=== PATIENT | male | born 1950 | race American Indian/Alaskan Native ===

== ENCOUNTER 2020-08-01 12:31 | Inpatient (IN) | payer OTHER ==
[2020-08-01] MEDS ORDERED: SODIUM CHLORIDE 0.9% 1000 ML 1,000 ML IV ONE ×3 (13:25→19:55)
--- NOTE | 2020-08-01 13:28 | Event Note ---
ED Screening Note Date of service: 08/01/20 Time: 13:27 ED Screening Note: 70-year-old male sent to the emergency room from [facility] primary [facility] for elevated glucose. States that the glucose meter only states high. Patient does have a history of diabetes. Complains of blurred vision, increased thirst and increased urinary frequency that started 1 week ago. This initial assessment/diagnostic orders/clinical plan/treatment(s) is/are subject to change based on patients health status, clinical progression and re- assessment by fellow clinical providers in the ED. Further treatment and workup at subsequent clinical providers discretion. Patient/guardian urged not to elope from the ED as their condition may be serious if not clinically assessed and managed. Initial orders include: 70-year-old -Beninese male with is referred to the emergency room by [facility] primary [facility]
[2020-08-01 14:37] LABS: Albumin 4.7 g/dL (3.9-5); Calcium 10.4 mg/dL (8.4-10.2)
[2020-08-01 14:42] LABS: Bilirubin,Urine NEG (Negative); Blood,Urine NEG (Negative); Color,Urine Straw (Yellow); Protein,Urine <15 mg/dL mg/dL (Negative); Urobilinogen,Urine < 2.0 mg/dL (<2.0)
[2020-08-01 15:19] LABS: Calcium 10.6 mg/dL (8.4-10.2)
[2020-08-01] MEDS ORDERED: INSULIN REGULAR, HUMAN 100 UNITS in SODIUM CHLORIDE 0.9% 99 ML IV SCH (16:00)
--- NOTE | 2020-08-01 16:08 | Emergency Department Report ---
HPI - General Chief Complaint: Hyperglycemia Time Seen by Provider: 08/01/20 15:51 - HPI HPI: This is a 70-year-old male who presents to the emergency department, sent in by his PCP Dr. Badillo, with a complaint of uncontrolled diabetes. The patient is [id number] on Metformin but admits to noncompliance with his medication over the past 6 weeks. Patient complains of fatigue, dry mouth, increased urination and just generally feels unwell. Patient also has some questionable history of hypertension but is not on any medication for it. He denies any history of MA, CVA, PE/DVT. He has not taken anything for symptoms prior to presentation. He denies any fever, nausea, vomiting, chest pain, shortness of breath, abdominal pain. No known aggravating or alleviating factors. He denies any tobacco or illicit drug use. ED Past Medical Hx - Past Medical History Hx Diabetes: Yes - Surgical History Past Surgical History?: No ED Review of Systems ROS: Stated complaint: HIGH GLUCOSE Other details as noted in HPI Comment: All other systems reviewed and negative Constitutional: other (Fatigue). denies: chills, fever Eyes: denies: eye pain, vision change ENT: denies: ear pain, throat pain Respiratory: denies: cough, shortness of breath Cardiovascular: denies: chest pain, palpitations Endocrine: increased thirst, increased urine Gastrointestinal: denies: abdominal pain, vomiting Genitourinary: frequency. denies: dysuria Musculoskeletal: denies: back pain, arthralgia Skin: denies: rash, lesions Neurological: denies: headache, numbness Physical Exam - Physical Exam Vital Signs: Vital Signs 08/01/20 13:08 Temperature 98.4 F Pulse Rate 101 H Respiratory 20 Rate Blood Pressure 163/93 [Right] O2 Sat by Pulse 99 Oximetry Physical Exam: GENERAL: The patient is well-developed well-nourished. HENT: Normocephalic. Atraumatic. Patient has moist mucous membranes. EYES: Extraocular motions are intact. NECK: Supple. Trachea is midline. CHEST/LUNGS: Clear to auscultation. There is no respiratory distress noted. HEART/CARDIOVASCULAR: Regular. There is no tachycardia. There is no murmur. ABDOMEN: Abdomen is soft, nontender. Patient has normal bowel sounds. SKIN: Skin is warm and dry. NEURO: The patient is awake, alert, and oriented. The patient is cooperative. The patient has no focal neurologic deficits. Normal speech. Cranial nerves II through XII grossly intact. MUSCULOSKELETAL: There is no tenderness or deformity. There is no limitation range of motion. ED Course Vital Signs 08/01/20 13:08 Temperature 98.4 F Pulse Rate 101 H Respiratory 20 Rate Blood Pressure 163/93 [Right] O2 Sat by Pulse 99 Oximetry - Reevaluation(s) Reevaluation #1: 08/01/20 16:08 Patient's labs were drawn just prior to my shift starting. The patient appears to be in diabetic ketoacidosis with venous acidosis, elevated anion gap of 35, and a serum blood sugar of about 600. He has 80 urine ketones. Patient will receive IV fluid resuscitation and will be started on insulin drip. The patient does have hyperkalemia with a potassium level of 6.8 but this should come down with the insulin drip. ED Medical Decision Making - Lab Data Result diagrams: 08/01/20 16:50 08/01/20 16:50 Lab Results 08/01/20 08/01/20 08/01/20 Range/Units 13:18 13:37 13:37 VBG pH (7.320-7.420) Sodium 132 L 129 L (137-145) mmol/L Potassium 5.9 H 6.8 H* (3.6-5.0) mmol/L Chloride 87.1 L 87.7 L (98-107) mmol/L Carbon Dioxide 16 L 13 L (22-30) mmol/L Anion Gap 35 35 mmol/L BUN 27 H 26 H (9-20) mg/dL Creatinine 1.5 H 1.5 H (0.8-1.3) mg/dL Estimated GFR 46 46 ml/min BUN/Creatinine Ratio 18 17 % Glucose 605 H* 594 H* (75-100) mg/dL POC Glucose 588 H (70-105) mg/dL Calcium 10.4 H 10.6 H (8.4-10.2) mg/dL Phosphorus 4.50 (2.5-4.5) mg/dL Magnesium 2.40 H (1.7-2.3) mg/dL Total Bilirubin 0.40 (0.1-1.2) mg/dL AST 19 (5-40) units/L ALT 20 (7-56) units/L Alkaline Phosphatase 76 (35-129) units/L Total Protein 7.5 (6.3-8.2) g/dL Albumin 4.7 (3.9-5) g/dL Albumin/Globulin Ratio 1.7 % 08/01/20 08/01/20 Range/Units 13:37 15:57 VBG pH 7.238 L (7.320-7.420) Sodium 132 L (137-145) mmol/L Potassium 4.8 D (3.6-5.0) mmol/L Chloride 88.5 L (98-107) mmol/L Carbon Dioxide 15 L (22-30) mmol/L Anion Gap 33 mmol/L BUN 26 H (9-20) mg/dL Creatinine 1.5 H (0.8-1.3) mg/dL Estimated GFR 56 ml/min BUN/Creatinine Ratio 17 % Glucose 557 H* (75-100) mg/dL POC Glucose (70-105) mg/dL Calcium 10.1 (8.4-10.2) mg/dL Phosphorus (2.5-4.5) mg/dL Magnesium (1.7-2.3) mg/dL Total Bilirubin (0.1-1.2) mg/dL AST (5-40) units/L ALT (7-56) units/L Alkaline Phosphatase (35-129) units/L Total Protein (6.3-8.2) g/dL Albumin (3.9-5) g/dL Albumin/Globulin Ratio % - Medical Decision Making This patient presents to the emergency department after he was sent in by his PCP for hyperglycemia. The patient has had some generalized weakness, polyuria and polydipsia. He appears to be in diabetic ketoacidosis with a venous acidosis of 7.23, serum blood sugar of about 600, and an elevated anion gap of 35. The patient has been given IV fluid resuscitation and started on insulin drip. The patient will be admitted to the ICU and has been accepted for admission by the hospitalist, Dr. Alcocer. Critical Care Time: Yes Critical care time in (mins) excluding proc time.: 35 Critical care attestation.: If time is entered above; I have spent that time in minutes in the direct care of this critically ill patient, excluding procedure time. Critical care time was spent on this patient in doing his initial evaluation, multiple reevaluations, ordering and interpretation of laboratory studies, IV fluid resuscitation and IV insulin drip for his DKA. Critical Care Time: 35 minutes ED Disposition Clinical Impression: DKA (diabetic ketoacidoses), High anion gap metabolic acidosis Disposition: OP ADMIT IP TO THIS HOSP Is pt being admited?: Yes Condition: Serious Time of Disposition: 18:38
[2020-08-01] MEDS ORDERED: ACETAMINOPHEN 325 MG TAB PO PRN (16:10)
--- NOTE | 2020-08-01 16:27 | History and Physical Report ---
History of Present Illness Chief complaint: My sugar is up History of present illness: 70 YO Male with DM, Medication/Dietary Noncompliance presents to ED for evaluation. Patient reports "my blood sugar is up". Patient acknowledges noncompliance with oral antihyperglycemic medication, as well as consistent carbohydrate diet. Patient states that he has experienced elevated blood glucose over the past 1 month. Patient knowledges polydipsia, polyuria and polyphagia as well as generalized weakness. Patient was seen and evaluated by his primary care physician today and was found to have an elevated blood glucose and was instructed to seek further care at [facility]. Patient transported via private vehicle to [facility] for further care and evaluation of the aforementioned symptoms. The patient was seen and evaluated in the emergency department. All lab and imaging studies reviewed. Patient found to have DKA complicated by volume depletion, acute kidney injury, and metabolic acidosis. Patient admitted to ICU and initiated on DKA protocol in the emergency department. Patient denies fever, chills, chest pain, palpitation, productive cough, skin rash, recent ill contacts, or known exposure to COVID-19. No prior admission for review. No medication listed at time of admission for reconci liation. Advanced care planning conducted in ED. Past History Past Medical History: diabetes, other (See HPI) Past Surgical History: No surgical history, Other (Reviewed) Social history: single. denies: smoking, alcohol abuse, prescription drug abuse Family history: diabetes, hypertension Medications and Allergies Allergies Allergy/AdvReac Type Severity Reaction Status Date / Time No Known Allergies Allergy Unverified 08/01/20 13:05 Active Meds: Active Medications Insulin Human Regular 100 (units/ Sodium Chloride) 100 mls @ 1 mls/hr IV TITR RYLEE; Protocol Review of Systems Constitutional: no weight loss, no weight gain, no fever, no chills Ears, nose, mouth and throat: no ear pain, no ear discharge, no decreased hearing, no sinus pressure Cardiovascular: no chest pain, no orthopnea, no palpitations, no edema, no syncope, no lightheadedness Respiratory: no cough, no cough with sputum, no excessive sputum, no hemoptysis, no shortness of breath, no dyspnea on exertion Gastrointestinal: no abdominal pain, no nausea, no vomiting, no constipation, no hematemesis, no coffee ground emesis Genitourinary Male: no hematuria, no flank pain, no discharge, no urinary frequency, no urinary hesitancy, no nocturia Rectal: no pain, no incontinence, no bleeding Musculoskeletal: no neck stiffness, no neck pain, no shooting arm pain, no arm numbness/tingling, no low back pain, no shooting leg pain Integumentary: no rash, no sores, no wounds, no jaundice Neurological: no transient paralysis, no paralysis, no parathesias, no numbness, no seizures, no syncope, no ataxia Psychiatric: no anxiety, no memory loss, no hypersomnia, no change in appetite, no suicidal ideation Endocrine: polyphagia, polydipsia, polyuria, nocturia, high blood sugars, no cold intolerance, no heat intolerance, no proptosis, no deepening of the voice, no thyroid mass Hematologic/Lymphatic: no easy bruising, no easy bleeding, no lymphadenopathy Allergic/Immunologic: no urticaria, no persistent infections, no anaphylaxis, no angioedema Exam - Constitutional Vitals: Temp Pulse Resp BP Pulse Ox 98.4 F 101 H 20 163/93 99 08/01/20 13:08 08/01/20 13:08 08/01/20 13:08 08/01/20 13:08 08/01/20 13:08 General appearance: Present: mild distress - EENT Eyes: Present: PERRL ENT: hearing intact, clear oral mucosa, other (Oral mucosa dry) - Neck Neck: Present: supple, normal ROM - Respiratory Respiratory effort: normal Respiratory: bilateral: CTA - Cardiovascular Heart Sounds: Present: S1 & S2. Absent: rub, click - Extremities Extremities: pulses symmetrical, No edema Peripheral Pulses: within normal limits - Abdominal General gastrointestinal: Present: soft, non-tender, non-distended, normal bowel sounds Male genitourinary: Present: normal - Integumentary Integumentary: Present: clear, warm, dry - Musculoskeletal Musculoskeletal: gait normal, strength equal bilaterally - Psychiatric Psychiatric: appropriate mood/affect, intact judgment & insight - Neurologic Neurologic: CNII-XII intact, moves all extremities Results - Labs CBC & Chem 7: 08/01/20 15:57 Labs: Abnormal lab results 08/01/20 08/01/20 08/01/20 Range/Units 13:37 13:37 13:37 VBG pH 7.238 L (7.320-7.420) Sodium 132 L 129 L (137-145) mmol/L Potassium 5.9 H 6.8 H* (3.6-5.0) mmol/L Chloride 87.1 L 87.7 L (98-107) mmol/L Carbon Dioxide 16 L 13 L (22-30) mmol/L BUN 27 H 26 H (9-20) mg/dL Creatinine 1.5 H 1.5 H (0.8-1.3) mg/dL Glucose 605 H* 594 H* (75-100) mg/dL Calcium 10.4 H 10.6 H (8.4-10.2) mg/dL Magnesium 2.40 H (1.7-2.3) mg/dL Assessment and Plan - Patient Problems (1) DKA (diabetic ketoacidoses) Current Visit: Yes Status: Acute Plan to address problem: DKA protocol: IV fluid resuscitation therapy, insulin drip, serial BMP to monitor anion gap, potassium repletion as per protocol, supportive care The high probability of a clinically significant, sudden or life threatening deterioration of the [endocrine, renal,] system(s) required my full and direct attention, intervention and personal management. The aggregate critical care time was [60] minutes. This time is in addition to time spent performing reported procedures but includes the following: [x] Data Review and interpretation [x] Patient assessment and monitoring of vital signs [x] Documentation [x] Medication orders and management (2) Metabolic acidosis Current Visit: Yes Status: Acute Plan to address problem: IV fluid resuscitation therapy, treat DKA, IV bicarbonate therapy, BMP, repeat BMP in a.m. (3) Acute kidney injury (GRISELDA) with acute tubular necrosis (ATN) Current Visit: Yes Status: Acute Plan to address problem: IV fluid resuscitation therapy, BMP, monitor urine output every shift, repeat BMP in a.m. to monitor serum creatinine as well as GFR. (4) DVT prophylaxis Current Visit: Yes Status: Acute Plan to address problem: SCD to bilateral lower extremities while in bed, patient is ambulatory (5) Advance care planning Current Visit: Yes Status: Acute Plan to address problem: Disease education conducted, patient is full code, care plan discussed, prognosis discussed, diagnosis discussed, patient knowledges understanding and agree with care plan, +30 minutes.
[2020-08-01 16:37] LABS: Calcium 10.1 mg/dL (8.4-10.2)
[2020-08-01] MEDS ORDERED: SODIUM CHLORIDE 0.9% 1000 ML 2,000 ML ONE (17:03)
[2020-08-01 17:44] LABS: BUN/Creatinine Ratio 19; Blood Urea Nitrogen 27 mg/dL (9-20); Calcium 10.1 mg/dL (8.4-10.2); Hemolysis Index 48
[2020-08-01 17:52] LABS: Hematocrit 48.4 % (35.5-45.6); Hemoglobin 15.6 gm/dl (11.8-15.2); Mean Corpuscular HGB Conc 32 % (32-34); Mean Corpuscular Volume 96 fl (84-94); Platelet Count 196 K/mm3 (140-440); Red Blood Count 5.02 M/mm3 (3.65-5.03); Red Cell Distribution Width 14.2 % (13.2-15.2)
[2020-08-01 20:03] LABS: BUN/Creatinine Ratio 19; Blood Urea Nitrogen 25 mg/dL (9-20); Calcium 9.4 mg/dL (8.4-10.2); Hemolysis Index 18
[2020-08-01] MEDS: FAMOTIDINE 20 MG TAB PO SCH (22:00)
[2020-08-01] MEDS ORDERED: D5W/0.45% NACL 1,000 ML IV SCH (22:00)
[2020-08-01 23:52] LABS: BUN/Creatinine Ratio 16; Blood Urea Nitrogen 22 mg/dL (9-20); Calcium 9.2 mg/dL (8.4-10.2); Hemolysis Index 9
[2020-08-02] MEDS ORDERED: D5W/0.45% NACL/KCL 20 MEQ 20 MEQ/1,000 ML BAG IV SCH (01:00)
[2020-08-02 06:20] LABS: BUN/Creatinine Ratio 16; Blood Urea Nitrogen 19 mg/dL (9-20); Calcium 8.9 mg/dL (8.4-10.2); Hemolysis Index 8
[2020-08-02] MEDS ORDERED: SODIUM CHLORIDE 0.9% 1000 ML 1,000 ML IV ONE (06:44)
[2020-08-02] MEDS ORDERED: INSULIN REGULAR, HUMAN 100 UNITS/1 ML SUB-Q ONE (07:44)
[2020-08-02] MEDS ORDERED: DEXTROSE 50% IN WATER (25GM) 50 ML SYRINGE IV PRN (08:03)
[2020-08-02] MEDS ORDERED: INSULIN NPH/REGULAR 70/30 INJ SUB-Q SCH ×2 (08:30→17:00)
--- NOTE | 2020-08-02 08:33 | Consultation ---
History of Present Illness - Reason for Consult Consult date: 08/02/20 DKA Requesting physician: CELINA MOULTON - History of Present Illness 70 y/o male with known diabetes who recently lost his job, admitted with DKA. Unfortunately patient was not able to obtain his medication since losing his job. He is normally compliant with therapy per report. He was started on insulin drip. Anion Gap is now closed. Patient feels better. Past History Past Medical History: diabetes, other (See HPI) Past Surgical History: No surgical history, Other (Reviewed) Social history: single. denies: smoking, alcohol abuse, prescription drug abuse Family history: diabetes, hypertension Medications and Allergies Allergies Allergy/AdvReac Type Severity Reaction Status Date / Time No Known Allergies Allergy Unverified 08/01/20 13:05 Active Meds: Active Medications Acetaminophen (Acetaminophen 325 Mg Tab) 650 mg PO Q6H PRN PRN Reason: Pain MILD(1-3)/Fever >100.5/SAWYER Dextrose (Dextrose 50% In Water (25gm) 50 Ml Syringe) 50 ml IV Q30MIN PRN; Protocol PRN Reason: Hypoglycemia Famotidine (Famotidine 20 Mg Tab) 20 mg PO BID RYLEE Last Admin: 08/01/20 22:00 Dose: Not Given Documented by: Insulin Human Regular 100 (units/ Sodium Chloride) 100 mls @ 1 mls/hr IV TITR RYLEE; Protocol Stop: 08/02/20 12:00 Last Titration: 08/02/20 08:00 Dose: 0 units/hr, 0 mls/hr Documented by: Sodium Chloride (Nacl 0.9% 1000 Ml) 1,000 mls @ 75 mls/hr IV BOLUS ONE Stop: 08/02/20 20:03 Last Admin: 08/02/20 07:43 Dose: 75 mls/hr Documented by: Insulin Human Isoph/Insulin Regular (Insulin Nph/Regular 70/30 Inj) 20 unit SUB-Q QDDIAB RYLEE Last Admin: 08/02/20 08:21 Dose: 20 unit Documented by: Insulin Human Isoph/Insulin Regular (Insulin Nph/Regular 70/30 Inj) 6 unit SUB- Q QPMDIAB RYLEE Insulin Human Lispro (Insulin Lispro 100 Unit/Ml) 0 unit SUB-Q ACHS RYLEE; Protocol Sodium Chloride (Sodium Chloride 0.9% 10 Ml Flush Syringe) 10 ml IV BID RYLEE Last Admin: 08/01/20 22:00 Dose: 10 ml Documented by: Sodium Chloride (Sodium Chloride 0.9% 10 Ml Flush Syringe) 10 ml IV PRN PRN PRN Reason: LINE FLUSH Review of Systems All systems: negative Exam - Constitutional Vitals: Temp Pulse Resp BP Pulse Ox 98.5 F 76 15 98/55 100 08/02/20 07:22 08/02/20 04:31 08/02/20 04:31 08/02/20 04:31 08/02/20 04:31 General appearance: Present: no acute distress, obese - EENT Eyes: Present: PERRL, EOM intact ENT: hearing intact - Neck Neck: Present: supple, normal ROM - Respiratory Respiratory effort: normal Respiratory: bilateral: CTA - Cardiovascular Rhythm: regular Heart Sounds: Present: S1 & S2 - Extremities Extremities: no ischemia, No edema - Abdominal General gastrointestinal: Present: soft, non-tender, normal bowel sounds Male genitourinary: Present: deferred - Rectal Rectal Exam: deferred - Integumentary Integumentary: Present: clear, warm, dry Results - Labs CBC & Chem 7: 08/01/20 16:50 08/02/20 05:20 Labs: Abnormal lab results 08/01/20 08/01/20 08/01/20 Range/Units 13:18 13:37 13:37 Hgb (11.8-15.2) gm/dl Hct (35.5-45.6) % MCV (84-94) fl VBG pH (7.320-7.420) Sodium 132 L 129 L (137-145) mmol/L Potassium 5.9 H 6.8 H* (3.6-5.0) mmol/L Chloride 87.1 L 87.7 L (98-107) mmol/L Carbon Dioxide 16 L 13 L (22-30) mmol/L BUN 27 H 26 H (9-20) mg/dL Creatinine 1.5 H 1.5 H (0.8-1.3) mg/dL Glucose 605 H* 594 H* (75-100) mg/dL POC Glucose 588 H (70-105) mg/dL Calcium 10.4 H 10.6 H (8.4-10.2) mg/dL Magnesium 2.40 H (1.7-2.3) mg/dL 08/01/20 08/01/20 08/01/20 Range/Units 13:37 15:57 16:50 Hgb (11.8-15.2) gm/dl Hct (35.5-45.6) % MCV (84-94) fl VBG pH 7.238 L (7.320-7.420) Sodium 132 L 133 L (137-145) mmol/L Potassium 5.5 H (3.6-5.0) mmol/L Chloride 88.5 L 89.4 L (98-107) mmol/L Carbon Dioxide 15 L 12 L (22-30) mmol/L BUN 26 H 27 H (9-20) mg/dL Creatinine 1.5 H 1.4 H (0.8-1.3) mg/dL Glucose 557 H* 548 H* (75-100) mg/dL POC Glucose (70-105) mg/dL Calcium (8.4-10.2) mg/dL Magnesium (1.7-2.3) mg/dL 08/01/20 08/01/20 08/01/20 Range/Units 16:50 19:12 19:39 Hgb 15.6 H (11.8-15.2) gm/dl Hct 48.4 H (35.5-45.6) % MCV 96 H (84-94) fl VBG pH (7.320-7.420) Sodium (137-145) mmol/L Potassium (3.6-5.0) mmol/L Chloride (98-107) mmol/L Carbon Dioxide 14 L (22-30) mmol/L BUN 25 H (9-20) mg/dL Creatinine (0.8-1.3) mg/dL Glucose 310 H (75-100) mg/dL POC Glucose 387 H (70-105) mg/dL Calcium (8.4-10.2) mg/dL Magnesium (1.7-2.3) mg/dL 08/01/20 08/01/20 08/01/20 Range/Units 20:11 21:10 22:32 Hgb (11.8-15.2) gm/dl Hct (35.5-45.6) % MCV (84-94) fl VBG pH (7.320-7.420) Sodium (137-145) mmol/L Potassium (3.6-5.0) mmol/L Chloride (98-107) mmol/L Carbon Dioxide (22-30) mmol/L BUN (9-20) mg/dL Creatinine (0.8-1.3) mg/dL Glucose (75-100) mg/dL POC Glucose 281 H 206 H 173 H (70-105) mg/dL Calcium (8.4-10.2) mg/dL Magnesium (1.7-2.3) mg/dL 08/01/20 08/01/20 08/02/20 Range/Units 23:09 23:13 00:15 Hgb (11.8-15.2) gm/dl Hct (35.5-45.6) % MCV (84-94) fl VBG pH (7.320-7.420) Sodium 124 L D (137-145) mmol/L Potassium 3.2 L D (3.6-5.0) mmol/L Chloride 91.0 L (98-107) mmol/L Carbon Dioxide (22-30) mmol/L BUN 22 H (9-20) mg/dL Creatinine 1.4 H (0.8-1.3) mg/dL Glucose 150 H (75-100) mg/dL POC Glucose 204 H 177 H (70-105) mg/dL Calcium (8.4-10.2) mg/dL Magnesium (1.7-2.3) mg/dL 08/02/20 08/02/20 08/02/20 Range/Units 01:18 04:14 05:15 Hgb (11.8-15.2) gm/dl Hct (35.5-45.6) % MCV (84-94) fl VBG pH (7.320-7.420) Sodium (137-145) mmol/L Potassium (3.6-5.0) mmol/L Chloride (98-107) mmol/L Carbon Dioxide (22-30) mmol/L BUN (9-20) mg/dL Creatinine (0.8-1.3) mg/dL Glucose (75-100) mg/dL POC Glucose 111 H 118 H 159 H (70-105) mg/dL Calcium (8.4-10.2) mg/dL Magnesium (1.7-2.3) mg/dL 08/02/20 08/02/20 Range/Units 05:20 06:13 Hgb (11.8-15.2) gm/dl Hct (35.5-45.6) % MCV (84-94) fl VBG pH (7.320-7.420) Sodium (137-145) mmol/L Potassium (3.6-5.0) mmol/L Chloride (98-107) mmol/L Carbon Dioxide (22-30) mmol/L BUN (9-20) mg/dL Creatinine (0.8-1.3) mg/dL Glucose 173 H (75-100) mg/dL POC Glucose 186 H (70-105) mg/dL Calcium (8.4-10.2) mg/dL Magnesium (1.7-2.3) mg/dL Assessment and Plan 70 y/o male with known Diabetes admitted with DKA. 1. Anion Gap is now closed 2. Long acting insulin has been ordered 3. Already on diet 4. Will need medication assistance once discharged, he does have a new job. 5. stable for transfer out of the unit.
[2020-08-02] MEDS: FAMOTIDINE 20 MG TAB PO SCH ×2 (09:50→22:40)
[2020-08-02 12:14] LABS: BUN/Creatinine Ratio 17; Blood Urea Nitrogen 19 mg/dL (9-20); Calcium 9.3 mg/dL (8.4-10.2); Hemolysis Index 11
[2020-08-02 12:19] LABS: Chol/HDL Ratio 5.43 %
[2020-08-02] MEDS: INSULIN LISPRO 100 UNIT/ML SUB-Q SCH ×3 (12:57→22:41)
--- NOTE | 2020-08-02 13:24 | Progress Note ---
Assessment and Plan Assessment and plan: DKA s/p insulin drip High anion gap metabolic acidosis Acute kidney injury with ATN secondary to vasomotor nephropathy Hyponatremia Hypokalemia Hyperchloremia Hyperglycemia DKA -S/p insulin drip -Novolin 70/30 -SSI -Accu-Cheks AC at bedtime -CC diet High anion gap metabolic acidosis, resolved -S/p MIVF -Trend BMP Acute kidney injury with ATN -Presented with a creatinine of 1.5 and BUN of 27 -S/p MIVF -Trend BMP -Strict intake and output -Daily weights Hyponatremia, resolved -Presented with a sodium of 125 -S/p MIVF -Trend BMP Hypokalemia, resolved -Presented with a potassium of 3.2 -Repleted, potassium 4 Hypochloremia -Presented with chloride of 91 -S/p MIVF, chloride 104 Hyperglycemia -Presented with a blood glucose of 605 -S/p insulin drip -SSI, CC diet, Accu-Cheks AC at bedtime, long-acting insulin (titrate as needed) DVT/GI prophylaxis: SCDS to BLE while in bed, PPI, Heparin subq Dispo: TTF History Interval history: This is a 70-year-old male with apx-vaionhs-cjoneoonw diabetes mellitus and medical/dietary noncompliance who presented to the emergency department on 08/01 with " my blood sugar is up" from his PCP. Patient has been experiencing elevated blood glucose over the past month with polydipsia, polyuria and polyphagia with generalized weakness. Patient was found to have DKA complicated by volume depletion, acute kidney injury and metabolic acidosis. Patient was admitted to the hospital service icu with a consult to [facility] for on the DKA protocol. 08/02: Patient's anion gap has closed and he has been transitioned to SSI with p.o. intake. Patient will be transferred to the floor. Hospitalist Physical - Constitutional Vitals: Temp Pulse Resp BP Pulse Ox 98.5 F 66 18 147/79 96 08/02/20 12:00 08/02/20 12:00 08/02/20 12:00 08/02/20 12:00 08/02/20 12:00 General appearance: Present: no acute distress, obese - EENT Eyes: Present: PERRL, EOM intact ENT: hearing intact, clear oral mucosa, poor dentition - Neck Neck: Present: normal ROM - Respiratory Respiratory effort: normal Respiratory: bilateral: CTA - Cardiovascular Rhythm: regular Heart Sounds: Present: S1 & S2. Absent: systolic murmur, diastolic murmur - Extremities Extremities: no ischemia, pulses intact, pulses symmetrical, No edema, normal temperature, normal color, Full ROM Peripheral Pulses: within normal limits - Abdominal General gastrointestinal: soft, non-tender, non-distended, normal bowel sounds - Integumentary Integumentary: Present: clear, warm, dry - Psychiatric Psychiatric: cooperative - Neurologic Neurologic: CNII-XII intact, no focal deficits, moves all extremities - Allied Health Allied health notes reviewed: nursing Results - Labs CBC & Chem 7: 08/01/20 16:50 08/02/20 11:08 Labs: Laboratory Last Values WBC 6.3 K/mm3 (4.5-11.0) 08/01/20 16:50 RBC 5.02 M/mm3 (3.65-5.03) 08/01/20 16:50 Hgb 15.6 gm/dl (11.8-15.2) H 08/01/20 16:50 Hct 48.4 % (35.5-45.6) H 08/01/20 16:50 MCV 96 fl (84-94) H 08/01/20 16:50 MCH 31 pg (28-32) 08/01/20 16:50 MCHC 32 % (32-34) 08/01/20 16:50 RDW 14.2 % (13.2-15.2) 08/01/20 16:50 Plt Count 196 K/mm3 (140-440) 08/01/20 16:50 Lymph % (Auto) Exchange Floor Manager 08/01/20 16:50 [place] % (Auto) Exchange Floor Manager 08/01/20 16:50 Eos % (Auto) Exchange Floor Manager 08/01/20 16:50 Baso % (Auto) Exchange Floor Manager 08/01/20 16:50 Lymph # (Auto) Exchange Floor Manager 08/01/20 16:50 [place] # (Auto) Exchange Floor Manager 08/01/20 16:50 Eos # (Auto) Exchange Floor Manager 08/01/20 16:50 Baso # (Auto) Exchange Floor Manager 08/01/20 16:50 Seg Neutrophils % Exchange Floor Manager 08/01/20 16:50 Seg Neutrophils # Exchange Floor Manager 08/01/20 16:50 VBG pH 7.238 (7.320-7.420) L 08/01/20 13:37 Sodium 141 mmol/L (137-145) 08/02/20 11:08 Potassium 4.0 mmol/L (3.6-5.0) 08/02/20 11:08 Chloride 104.4 mmol/L (98-107) 08/02/20 11:08 Carbon Dioxide 25 mmol/L (22-30) 08/02/20 11:08 Anion Gap 16 mmol/L 08/02/20 11:08 BUN 19 mg/dL (9-20) 08/02/20 11:08 Creatinine 1.1 mg/dL (0.8-1.3) 08/02/20 11:08 Estimated GFR > 60 ml/min 08/02/20 11:08 BUN/Creatinine Ratio 17 % 08/02/20 11:08 Glucose 179 mg/dL (75-100) H 08/02/20 11:08 POC Glucose 177 mg/dL (70-105) H 08/02/20 10:58 Calcium 9.3 mg/dL (8.4-10.2) 08/02/20 11:08 Phosphorus 4.50 mg/dL (2.5-4.5) 08/01/20 13:37 Magnesium 2.40 mg/dL (1.7-2.3) H 08/01/20 13:37 Total Bilirubin 0.40 mg/dL (0.1-1.2) 08/01/20 13:37 AST 19 units/L (5-40) 08/01/20 13:37 ALT 20 units/L (7-56) 08/01/20 13:37 Alkaline Phosphatase 76 units/L (35-129) 08/01/20 13:37 Total Protein 7.5 g/dL (6.3-8.2) 08/01/20 13:37 Albumin 4.7 g/dL (3.9-5) 08/01/20 13:37 Albumin/Globulin Ratio 1.7 % 08/01/20 13:37 Triglycerides 249 mg/dL (2-149) H 08/02/20 11:08 Cholesterol 212 mg/dL (50-199) H 08/02/20 11:08 LDL Cholesterol Direct 143 mg/dL (50-130) H 08/02/20 11:08 HDL Cholesterol 39 mg/dL (40-59) L 08/02/20 11:08 Cholesterol/HDL Ratio 5.43 % 08/02/20 11:08 Urine Color Straw (Yellow) 08/01/20 Unknown Urine Turbidity Clear (Clear) 08/01/20 Unknown Urine pH 5.0 (5.0-7.0) 08/01/20 Unknown Ur Specific [place] 1.017 (1.003-1.030) 08/01/20 Unknown Urine Protein <15 mg/dl mg/dL (Negative) 08/01/20 Unknown Urine Glucose (UA) >=500 mg/dL (Negative) 08/01/20 Unknown Urine Ketones 80 mg/dL (Negative) 08/01/20 Unknown Urine Blood Neg (Negative) 08/01/20 Unknown Urine Nitrite Neg (Negative) 08/01/20 Unknown Urine Bilirubin Neg (Negative) 08/01/20 Unknown Urine Urobilinogen < 2.0 mg/dL (<2.0) 08/01/20 Unknown Ur Leukocyte Esterase Neg (Negative) 08/01/20 Unknown Urine WBC (Auto) 1.0 /HPF (0.0-6.0) 08/01/20 Unknown Urine RBC (Auto) 2.0 /HPF (0.0-6.0) 08/01/20 Unknown U Epithel Cells (Auto) 1.0 /HPF (0-13.0) 08/01/20 Unknown Hdez/IV: Voiding Method Urinal Active Medications - Current Medications Current Medications: Generic Name Dose Route Start Last Admin Trade Name Freq PRN Reason Stop Dose Admin Acetaminophen 650 mg 08/01/20 16:10 Acetaminophen 325 Mg Tab PO Q6H PRN Pain MILD(1-3)/Fever >100.5/SAWYER Dextrose 50 ml 08/02/20 08:03 Dextrose 50% In Water (25gm) 50 Ml Syringe IV Q30MIN PRN Hypoglycemia Protocol Famotidine 20 mg 08/01/20 22:00 08/02/20 09:50 Famotidine 20 Mg Tab PO 20 mg BID RYLEE Administration Heparin Sodium (Porcine) 5,000 unit 08/02/20 22:00 Heparin 5,000 Unit/1 Ml Vial SUB-Q Q12HR RYLEE Sodium Chloride 1,000 mls @ 75 mls/hr 08/02/20 06:44 08/02/20 07:43 Nacl 0.9% 1000 Ml IV 08/02/20 20:03 75 mls/hr BOLUS ONE Administration Insulin Human Isoph/Insulin Regular 20 unit 08/02/20 08:30 08/02/20 08:21 Insulin Nph/Regular 70/30 Inj SUB-Q 20 unit QDDIAB RYLEE Administration Insulin Human Isoph/Insulin Regular 6 unit 08/02/20 17:00 Insulin Nph/Regular 70/30 Inj SUB-Q QPMDIAB RYLEE Insulin Human Lispro 0 unit 08/02/20 11:30 08/02/20 12:57 Insulin Lispro 100 Unit/Ml SUB-Q 2 unit ACHS RYLEE Administration Protocol Sodium Chloride 10 ml 08/01/20 22:00 08/02/20 09:50 Sodium Chloride 0.9% 10 Ml Flush Syringe IV 10 ml BID RYLEE Administration Sodium Chloride 10 ml 08/01/20 16:10 Sodium Chloride 0.9% 10 Ml Flush Syringe IV PRN PRN LINE FLUSH
[2020-08-02] MEDS: HEPARIN 5,000 UNIT/1 ML VIAL SUB-Q SCH (22:40)
[2020-08-03 08:13] LABS: BUN/Creatinine Ratio 16; Blood Urea Nitrogen 16 mg/dL (9-20); Calcium 8.4 mg/dL (8.4-10.2); Hemolysis Index 30
[2020-08-03] MEDS ORDERED: INSULIN NPH/REGULAR 70/30 INJ SUB-Q SCH (08:15)
[2020-08-03] MEDS: INSULIN LISPRO 100 UNIT/ML SUB-Q SCH (08:37)
--- NOTE | 2020-08-03 09:38 | Discharge Summary ---
Providers - Providers Date of Admission: 08/01/20 16:10 Date of discharge: 08/03/20 Attending physician: CELINA MOULTON MD 08/01/20 16:10 Consult to Physician [CONS] Routine Comment: Consulting Provider: SARAH COLLADO Physician Instructions: Reason For Exam: dka 08/02/20 08:03 Consult to Dietitian/Nutrition [CONS] Routine Physician Instructions: Reason For Exam: Reason for Consult: Diet education Primary care physician: KRISTA NÚÑEZ Hospitalization Reason for admission: DKA, uncontrolled diabetes mellitus Condition: Serious Hospital course: History of present illness: 70 YO Male with DM, Medication/Dietary Noncompliance presents to ED for evaluation. Patient reports "my blood sugar is up". Patient acknowledges noncompliance with oral antihyperglycemic medication, as well as consistent carbohydrate diet. Patient states that he has experienced elevated blood gl ucose over the past 1 month. Patient knowledges polydipsia, polyuria and polyphagia as well as generalized weakness. Patient was seen and evaluated by his primary care physician today and was found to have an elevated blood glucose and was instructed to seek further care at [facility]. Patient transported via private vehicle to [facility] for further care and evaluation of the aforementioned symptoms. The patient was seen and evaluated in the emergency department. All lab and imaging studies reviewed. Patient found to have DKA complicated by volume depletion, acute kidney injury, and metabolic acidosis. Patient admitted to ICU and initiated on DKA protocol in the emergency department. Patient denies fever, chills, chest pain, palpitation, productive cough, skin rash, recent ill contacts, or known exposure to COVID-19. No prior admission for review. No medication listed at time of admission for reconciliation. Advanced care planning conducted in ED. Hospital course Patient was admitted to ICU and was managed according to DKA protocol. DKA resolved. Hemoglobin A1c is 17. Patient started on sliding scale insulin and 70/30. Patient is doing well. rn diabetes educator counseled the patient. GRISELDA resolved. Patient discharged with insulin 70/30 25 units subcu twice daily. Patient was given prescription for diabetic supplies. I have counseled the patient to have follow-up with his primary care physician. Educated about symptoms of hypoglycemia and what to do. Patient was hemodynamically stable at the time of discharge. Patient's questions and concerns were addressed at the bedside. Disposition: DC-01 TO HOME OR SELFCARE Final Discharge Diagnosis (Prints w/discharge instructions): DKA. Uncontrolled diabetes mellitus Time spent for discharge: 35-minutes - Discharge Diagnoses (1) Diabetes mellitus type 2, uncontrolled Status: Acute (2) Acute kidney injury (GRISELDA) with acute tubular necrosis (ATN) Status: Acute (3) DKA (diabetic ketoacidoses) Status: Acute (4) High anion gap metabolic acidosis Status: Acute (5) Metabolic acidosis Status: Acute Core Measure Documentation - Palliative Care Palliative Care/ Comfort Measures: Not Applicable - Core Measures Any of the following diagnoses?: none Exam - Physical Exam Narrative exam: Not in cardiopulmonary distress. The patient appeared well nourished and normally developed. Vital signs as documented. Head exam is unremarkable. No scleral icterus . Neck is without jugular venous distension, thyromegaly, or carotid bruits. Lungs are clear to auscultation. Cardiac exam reveals regular rate and Rhythm. Abdominal exam reveals normal bowel sounds, nontender, no organomegaly. Extremities are nonedematous and both femoral and pedal pulses are normal. CANT GANG SAWYER: Alert and oriented 3. No focal weakness. - Constitutional Vitals: Temp Pulse Resp BP Pulse Ox 98.7 F 70 16 98/54 96 08/02/20 22:05 08/02/20 16:00 08/02/20 22:05 08/02/20 22:05 08/02/20 20:00 Plan Activity: no restrictions Weight Bearing Status: Full Weight Bearing Diet: diabetic Follow up with: KRISTA NÚÑEZ MD [Primary Care Provider] - 3-5 Days Prescriptions: A Lipoic Acid/Folic/Mv-Mn/Lut [Diabetes Health Pack] 1 each PO BID #1 combo..pkg Insulin NPH/Regular [NovoLIN 70/30] 25 unit SUB-Q BIDDIAB #1 vial
[2020-08-03] MEDS: FAMOTIDINE 20 MG TAB PO SCH (10:47)
[2020-08-03] MEDS: HEPARIN 5,000 UNIT/1 ML VIAL SUB-Q SCH (10:47)
[2020-08-03 13:07] VITALS: BP 121/76
== END 2020-08-03 12:07 | disposition home or self-care (01) | DRG 637 ==
LOC: ED 12:31 → CC1 16:10 → 3A 08-02 12:06
PROVIDERS: ADMIT Internal Medicine; ATTEND Internal Medicine
DX: E11.10 Type 2 diabetes mellitus with ketoacidosis without coma (principal); N17.0 Acute kidney failure with tubular necrosis; E87.1 Hypo-osmolality and hyponatremia; R63.2 Polyphagia; Z20.822 Contact with and (suspected) exposure to COVID-19; E87.6 Hypokalemia; E87.8 Other disorders of electrolyte and fluid balance, not elsewhere classified; Z82.49 Family history of ischemic heart disease and other diseases of the circulatory system; Z91.14 Patient's other noncompliance with medication regimen; Z83.3 Family history of diabetes mellitus
CPT/HCPCS: 36415; 80048; 80053; 80061; 81001; 82805; 82962; 83036; 83735; 84100; 85025; 96360; 96361; G0378; J1644; J1815; J7030; U0003

== ENCOUNTER 2021-01-19 13:21 | Outpatient (CLI) | payer BC ==
--- NOTE | 2021-01-19 14:54 | XRay Report ---
CHEST 2 VIEWS INDICATION / CLINICAL INFORMATION: FATIGUE. COMPARISON: None available. FINDINGS: SUPPORT DEVICES: None. HEART / MEDIASTINUM: No significant abnormality. LUNGS / PLEURA: Faint, streaky opacities involving the bilateral lung bases could reflect mild pneumo kari. No pneumothorax. ADDITIONAL FINDINGS: No significant additional findings. IMPRESSION: Faint streaky opacities within the bibasilar lungs, could reflect mild multifocal pneumonia. Signer Name: Rolf Davis MD Signed: 01/19/2021 2:49 PM Workstation Name: [email or web address]
== END 2021-01-19 13:22 | disposition home or self-care (01) ==
LOC: XRAY 13:21
PROVIDERS: ATTEND Internal Medicine
DX: R53.83 Other fatigue (principal)
CPT/HCPCS: 71046